=== PATIENT | male | born 1960 | race Caucasian/White ===

== ENCOUNTER → 2016-08-04 | Outpatient (CLI) | payer OTHER ==
[~2016-08-04] MED LIST: ASPI81TA28 PO; FURO20TA PO; GLC/500 PO; INSDGIPEN SC; INSU100I2 SC; INSU3INJ3 SC; LABE1TAB28 PO; LSN40 PO; NVLGIPEN SC; PLV75 PO; PRVC10 PO; SPIR50TA2 PO
[2016-08-04 13:11] LABS: BLOOD UREA NITROGEN 14 mg/dl (7-18); BUN/CREATININE RATIO 12.5 (10-20); CALCIUM 9.4 mg/dl (8.5-10.1); CARBON DIOXIDE 24 mmol/L (21-32); CHLORIDE 99 mmol/L (98-107); GLUCOSE 272 mg/dl (70-99); PHOSPHORUS 2.6 mg/dl (2.5-4.9); POTASSIUM 3.9 mmol/L (3.5-5.1); SODIUM 135 mmol/L (136-145)
== END | disposition home or self-care (01) ==
LOC: C.LABMFLN 08:01
PROVIDERS: ATTEND Internal Medicine Nephrology
DX: E26.09 Other primary hyperaldosteronism (principal); E87.6 Hypokalemia

== ENCOUNTER 2016-08-31 14:22 | Inpatient (IN) | payer OTHER ==
[~2016-08-31] VITALS: Ht 152.4 cm; Wt 112.0 kg
[~2016-08-31 14:22] MED LIST changes: -INSDGIPEN SC; -INSU100I2 SC; -INSU3INJ3 SC; -NVLGIPEN SC; -PLV75 PO; -PRVC10 PO
[2016-08-31] MEDS ORDERED: SODIUM CHLORIDE 0.9% 1000ML 1,000 ML IV SCH (14:45)
--- NOTE | 2016-08-31 14:51 | EMERGENCY ROOM VISIT NOTE ---
History Report prepared by Flip: Umberto Shepard Under the Supervision of: Dr. Ryan Herrera M.D. First contact with patient: 14:37 Chief Complaint: EYE ASSESSMENT Stated Complaint: BLURRY VISION R EYE History of Present Illness The patient is a 56 year old male who presents to the Emergency Room with complaints of a constant "star" in the right side of his visual field that her first noticed on Thursday afternoon, two days prior to arrival. The patient states that he was sitting at home watching the news when he noticed the "star- like" obstruction in his visual field. The brightness of the star has improved but it is still making it very difficult to read. He also began to experience a gradual onset headache when his symptoms started. This headache has resolved spontaneously today. The patient is a diabetic, which he tries to control with his diet. He also has a history of hypertension and takes Baby Aspirin daily. Source of History: patient Onset: Two days [employer] Position: eye (right) Quality: other ("star" obstructing vision) Timing: constant Associated Symptoms: + headache Review of Systems See HPI for pertinent positives & negatives. A total of 10 systems reviewed and were otherwise negative. Past Medical & Surgical Medical Problems: (1) CVA (cerebral vascular accident) (2) Diabetes (3) Hypertension (4) Visual changes Family History Diabetes mellitus FH: heart disease FHx: gallbladder disease Hypertension Social History Smoking Status: Never Smoker Alcohol Use: occasionally Marital Status: Housing Status: lives with family Occupation Status: employed Current/Historical Medications Scheduled Aspirin (Aspirin Ec), 81 MG PO DAILY Furosemide (Lasix), 20 MG PO DAILY Labetalol (Normodyne), 200 MG PO BID Lisinopril (Lisinopril), 40 MG PO DAILY Metformin Hcl (Glucophage), 500 MG PO QID Spironolactone (Aldactone), 50 MG PO DAILY Allergies Coded Allergies: No Known Allergies (Unverified , 08/31/16) Physical Exam Vital Signs Date Time Temp Pulse Resp B/P Pulse Ox O2 Delivery O2 Flow Rate FiO2 08/31/16 17:45 96 Room Air 08/31/16 17:39 77 16 148/89 96 Room Air 08/31/16 15:52 79 17 96 08/31/16 15:39 79 16 153/89 96 Room Air 08/31/16 15:38 81 08/31/16 15:36 153/89 08/31/16 14:50 96 Room Air 08/31/16 14:25 36.9 85 16 154/107 96 Room Air Physical Exam GENERAL: Patient is a healthy-appearing well-nourished male HEAD: Normocephalic atraumatic EYES: Ocular movements intact pupils equal and react to light OROPHARYNX mucous membranes are moist no exudates present no erythema or edema present NECK: Supple no nuchal rigidity CHEST: Good equal expansion LUNGS: Clear and equal to auscultation CARDIAC: Normal S1 and S2 ABDOMEN: Soft nontender no guarding BACK: No CVA tenderness EXTREMITIES: No pain upon palpation normal muscle strength in all groups no clubbing cyanosis or edema NEURO: Patient is following commands is answering questions appropriately. Alert and oriented x3 Cranial Nerves 2-12 grossly intact Medical Decision & Procedures ER Provider Diagnostic Interpretation: Radiology results as stated below per my review and radiologist interpretation: CT SCAN OF THE BRAIN WITHOUT IV CONTRAST CLINICAL HISTORY: Right-sided visual changes. COMPARISON STUDY: No priors. TECHNIQUE: Unenhanced axial CT scan of the brain is performed from the vertex to the skull base. Automated dose control exposure was utilized. CT DOSE: 537.48 mGy.cm FINDINGS: Brain parenchyma: There is loss of higuera-white matter differentiation the left occipital lobe, best seen on image #12. There is no hemorrhage or mass effect. There is minimal periventricular microangiopathic disease. No extra-axial fluid collection is seen. Ventricles, sulci, cisterns: Normal in configuration. Intracranial vasculature: There is mild atherosclerotic calcification of the cavernous carotid and vertebral arteries. Calvarium: Unremarkable. Sinuses and mastoids: The visualized paranasal sinuses are clear. The mastoid air cells are well pneumatized. Orbits: The bony orbits are grossly intact. IMPRESSION: 1. Findings are consistent with a small acute to subacute left occipital infarct. 2. No additional foci of ischemia are suggested by CT. There is no hemorrhage or mass effect. Electronically signed by: Doug Limon M.D. 08/31/2016 3:28 PM Dictated Date/Time: 08/31/2016 3:24 PM SINGLE VIEW CHEST CLINICAL HISTORY: Strokelike symptoms. FINDINGS: An AP, portable, upright chest radiograph is compared to study dated 08/29/2013. The examination is mildly degraded by portable technique and patient rotation. The heart is top normal for projection. The mediastinal contour is within normal limits. The lungs and pleural spaces are clear. No pneumothorax is seen. The bony thorax is grossly intact. IMPRESSION: No active disease in the chest. Electronically signed by: Doug Limon M.D. 08/31/2016 3:57 PM Dictated Date/Time: 08/31/2016 3:56 PM ULTRASOUND OF THE CAROTID ARTERIES: CLINICAL HISTORY: Left occipital stroke. COMPARISON STUDY: No priors. TECHNIQUE: Real-time, grayscale, and color Doppler sonography of the carotid arteries is performed. Images are reviewed in the transverse and longitudinal planes. FINDINGS: Blood pressure in the right arm measures 193/108 and blood pressure in the left arm measures 142/86. The carotid arteries are patent bilaterally and demonstrate antegrade flow. There is mild atheroscierotic plaque seen in the carotid bulbs bilaterally. Normal doppler arterial waveforms are seen throughout. Velocity measurements are listed below. Common carotid peak systolic velocity (cm/sec): RIGHT: 87 LEFT: 98 ICA proximal peal systolic velocity (cm/sec): RIGHT: 49 LEFT: 46 ICA mid peak systolic velocity (cm/sec): RIGHT: 55 LEFT: %) ICA distal peak systolic velocity (cm/sec): RIGHT: 56 LEFT: 55 ICA/CC peak systolic ratio: RIGHT 0.6 LEFT: 0.6 Antegrade flow was shown in the vertebral arteries. The external carotid arteries are patent. The subclavian arteries are patent with normal direction of flow. IMPRESSION: 1. There is no sonographic evidence of hemodynamically significant stenosis in the right or left carotid arterial system. 2. Antegrade flow is shown in the vertebral arteries. Electronically signed by: Doug Limon M.D. 08/31/2016 4:45 Laboratory Results 08/31/16 15:00 Red Blood Count 4.86, Mean Corpuscular Volume 85.2, Mean Corpuscular Hemoglobin 32.3, Mean Corpuscular Hemoglobin Concent 37.9, Mean Platelet Volume 10.0, Neutrophils (%) (Auto) 52.2, Lymphocytes (%) (Auto) 37.2, Monocytes (%) (Auto) 8.0, Eosinophils (%) (Auto) 1.9, Basophils (%) (Auto) 0.6, Neutrophils # (Auto) 3.52, Lymphocytes # (Auto) 2.51, Monocytes # (Auto) 0.54, Eosinophils # (Auto) 0.13, Basophils # (Auto) 0.04 08/31/16 15:00 Test 08/31/16 15:00 08/31/16 15:05 08/31/16 15:11 White Blood Count 6.75 K/uL (4.8-10.8) Red Blood Count 4.86 M/uL (4.7-6.1) Hemoglobin 15.7 g/dL (14.0-18.0) Hematocrit 41.4 % (42-52) Mean Corpuscular Volume 85.2 fL (80-100) Mean Corpuscular Hemoglobin 32.3 pg (25-34) Mean Corpuscular Hemoglobin Concent 37.9 g/dl (32-36) Platelet Count 216 K/uL (130-400) Mean Platelet Volume 10.0 fL (7.4-10.4) Neutrophils (%) (Auto) 52.2 % Lymphocytes (%) (Auto) 37.2 % Monocytes (%) (Auto) 8.0 % Eosinophils (%) (Auto) 1.9 % Basophils (%) (Auto) 0.6 % Neutrophils # (Auto) 3.52 K/uL (1.4-6.5) Lymphocytes # (Auto) 2.51 K/uL (1.2-3.4) Monocytes # (Auto) 0.54 K/uL (0.11-0.59) Eosinophils # (Auto) 0.13 K/uL (0-0.5) Basophils # (Auto) 0.04 K/uL (0-0.2) RDW Standard Deviation 36.8 fL (36.4-46.3) RDW Coefficient of Variation 11.9 % (11.5-14.5) Immature Granulocyte % (Auto) 0.1 % Immature Granulocyte # (Auto) 0.01 K/uL (0.00-0.02) Prothrombin Time 10.3 SECONDS (9.0-12.0) Prothromb Time International Ratio 1.0 (0.9-1.1) Activated Partial Thromboplast Time 25.0 SECONDS (21.0-31.0) Partial Thromboplastin Ratio 1.0 Anion Gap 10.0 mmol/L (3-11) Est Creatinine Clear Calc Drug Dose 74.1 ml/min Estimated GFR () 59.9 Estimated GFR (Non- 51.7 BUN/Creatinine Ratio 18.3 (10-20) Calcium Level 9.2 mg/dl (8.5-10.1) Total Creatine Kinase 112 U/L (39-308) Creatine Kinase MB 1.0 ng/ml (0.5-3.6) Creatine Kinase MB Ratio 0.9 (0-3.0) Troponin I < 0.015 ng/ml (0-0.045) Beta-Hydroxybutyric Acid 1.03 mg/dL (0.2-2.81) Urine Opiates Screen NEG (NEG) Urine Methadone, Qualitative NEG (NEG) Urine Barbiturates NEG (NEG) Urine Phencyclidine (PCP) Level NEG (NEG) Ur Amphetamine/Methamphetamine NEG (NEG) MDMA (Ecstasy) Screen NEG (NEG) Urine Benzodiazepines Screen NEG (NEG) Urine Cocaine Metabolite NEG (NEG) Urine Marijuana (THC) NEG (NEG) Bedside Glucose 420 mg/dl (70-99) Bedside Prothrombin Time INR 0.9 (0.9-1.1) Labs reviewed by ED physician. Medications Administered Medications (Trade) Dose Ordered Sig/Helga Route Start Time Stop Time Status Last Admin Dose Admin Sodium Chloride 1,000 ml @ 50 mls/hr Q20H IV 08/31/16 14:45 09/30/16 14:44 08/31/16 15:30 50 MLS/HR Sodium Chloride (Nss 1000ml) 1,000 ml @ 999 mls/hr Q1H1M STAT IV 08/31/16 15:17 08/31/16 16:17 DC 08/31/16 15:31 999 MLS/HR Insulin Human Regular (novoLIN-R U-100 PER UNIT) 10 units NOW STAT IV 08/31/16 15:17 08/31/16 15:19 DC 08/31/16 15:28 10 UNITS Aspirin (Aspirin Chew) 324 mg NOW STAT PO 08/31/16 15:45 08/31/16 15:47 DC 08/31/16 15:59 324 MG ECG Indication: other (Vision irregularities) Rate (beats per minute): 81 Rhythm: normal sinus Findings: other (Old inferior infarct) ED Course 1438: Past medical records reviewed. The patient was evaluated in room B12. A complete history and physical examination was performed. 1445: Ordered Sodium Chloride 1000 mL @ 50 mL/hr IV. 1517: Ordered Regular Human Insulin 10 units IV, Sodium Chloride 1000 mL @ 999 mL/hr IV. 1541: I checked on the patient at this time. I discussed the results of the CT scan. He understands the severity of his untreated Diabetes. 1545: Ordered Aspirin 324 mg PO. 1547: I discussed the case with Dr. Guanaco [facility]ATH[facility], he will evaluate the patient for further treatment. Medical Decision Differential diagnosis: Etiologies such as metabolic, infection, hypo/hyperglycemia, electrolyte abnormalities, cardiac sources, intracerebral event, toxicologic, neurologic, as well as others were entertained. This is a 56-year-old male who presents emergency department complaining of a starlike object in his right field of vision that developed acutely Thursday night with a large amount of floaters. On fundus exam his retina appears to be attached. Based on the patient's history of hypertension as well as poor diabetes control, he was sent for a CAT scan of the head. This was concerning for an occipital stroke. As his symptoms have been ongoing since Thursday night I do not believe he is a candidate for intervention. He was given 324 mg of aspirin here in emergency department along with a bolus of fluid. I will note that the patient's glucose is elevated for 20. He was also given 10 units of insulin here in the emergency department. I did discuss the case with Dr. Benjamin who agreed to admit the patient. Patient family were in agreement with the treatment plan. Consults Time Called: 1541 Consulting Physician: Dr. Guanaco [facility] Returned Call: [phone] I discussed the case with Dr. Guanaco [facility], he will evaluate the patient for further treatment. Impression Primary Impression: CVA (cerebral vascular accident) Critical Care I have personally spent greater than 30 minutes of critical care time in the direct management of this patient. This includes bedside care, interpretation of diagnostic studies, and testing, discussion with consultants, patient, and family members, and other required patient management activities. This 30 minutes is in excess of all separately billable procedures. Scribe Attestation The scribe's documentation has been prepared under my direction and personally reviewed by me in its entirety. I confirm that the note above accurately reflects all work, treatment, procedures, and medical decision making performed by me. Departure Information Dispostion Being Evaluated By Hospitalist Referrals Rei Milton D.O.Int.Med. (PCP) Patient Instructions My [facility] Problem Qualifiers Primary Impression: CVA (cerebral vascular accident) CVA mechanism: embolism Precerebral and cerebral artery: unspecified cerebral artery Qualified Codes: I63.40 - Cerebral infarction due to embolism of unspecified cerebral artery
[2016-08-31] MEDS ORDERED: FURO20TA PO (14:53)
[2016-08-31] MEDS ORDERED: NovoLIN-R INSULIN PER UNIT CHARGE IV STA (15:17)
[2016-08-31] MEDS ORDERED: SODIUM CHLORIDE 0.9% 1000ML 1,000 ML IV STA (15:17)
--- NOTE | 2016-08-31 15:30 | DIAGNOSTIC IMAGING REPORT ---
CT SCAN OF THE BRAIN WITHOUT IV CONTRAST CLINICAL HISTORY: Right-sided visual changes. COMPARISON STUDY: No priors. TECHNIQUE: Unenhanced axial CT scan of the brain is performed from the vertex to the skull base. Automated dose control exposure was utilized. CT DOSE: 537.48 mGy.cm FINDINGS: Brain parenchyma: There is loss of higuera-white matter differentiation the left occipital lobe, best seen on image #12. There is no hemorrhage or mass effect. There is minimal periventricular microangiopathic disease. No extra-axial fluid collection is seen. Ventricles, sulci, cisterns: Normal in configuration. Intracranial vasculature: There is mild atherosclerotic calcification of the cavernous carotid and vertebral arteries. Calvarium: Unremarkable. Sinuses and mastoids: The visualized paranasal sinuses are clear. The mastoid air cells are well pneumatized. Orbits: The bony orbits are grossly intact. IMPRESSION: 1. Findings are consistent with a small acute to subacute left occipital infarct. 2. No additional foci of ischemia are suggested by CT. There is no hemorrhage or mass effect. Electronically signed by: Doug Limon M.D. 08/31/2016 3:28 PM Dictated Date/Time: 08/31/2016 3:24 PM
[2016-08-31 15:33] LABS: BASO % 0.6 %; BASO ABS # 0.04 K/uL (0-0.2); COMPLETE YES; EOS % 1.9 %; HEMATOCRIT 41.4 % (42-52); IG% 0.1 %; LYMPH % 37.2 %; LYMPH ABS # 2.51 K/uL (1.2-3.4); MEAN CELL VOLUME 85.2 fL (80-100); MEAN CORPUSCULAR HEMOGLOBIN 32.3 pg (25-34); MEAN CORPUSCULAR HGB CONC 37.9 g/dl (32-36); NEUT % 52.2 %; PLATELET COUNT 216 K/uL (130-400); RED BLOOD COUNT 4.86 M/uL (4.7-6.1); WHITE BLOOD COUNT 6.75 K/uL (4.8-10.8)
[2016-08-31] MEDS ORDERED: ASPIRIN 81 MG CHEW PO STA (15:45)
[2016-08-31 15:46] LABS: PROTHROMBIN TIME (PATIENT) 10.3 SECONDS (9.0-12.0)
[2016-08-31 15:49] LABS: BENZODIAZEPINE, URINE NEG (NEG); COCAINE,URINE NEG (NEG); PHENCYCLIDINE, URINE NEG (NEG)
[2016-08-31 15:56] LABS: BLOOD UREA NITROGEN 27 mg/dl (7-18); BUN/CREATININE RATIO 18.3 (10-20); CALCIUM 9.2 mg/dl (8.5-10.1); CARBON DIOXIDE 26 mmol/L (21-32); CHLORIDE 96 mmol/L (98-107); CKMB/CK RATIO 0.9 (0-3.0); GLUCOSE 426 mg/dl (70-99); POTASSIUM 4.3 mmol/L (3.5-5.1); SODIUM 132 mmol/L (136-145)
--- NOTE | 2016-08-31 15:58 | DIAGNOSTIC IMAGING REPORT ---
SINGLE VIEW CHEST CLINICAL HISTORY: Strokelike symptoms. FINDINGS: An AP, portable, upright chest radiograph is compared to study dated 08/29/2013. The examination is mildly degraded by portable technique and patient rotation. The heart is top normal for projection. The mediastinal contour is within normal limits. The lungs and pleural spaces are clear. No pneumothorax is seen. The bony thorax is grossly intact. IMPRESSION: No active disease in the chest. Electronically signed by: Doug Limon M.D. 08/31/2016 3:57 PM Dictated Date/Time: 08/31/2016 3:56 PM
[2016-08-31 16:10] LABS: BETA-HYDROXYBUTYRATE 1.03 mg/dL (0.2-2.81)
[2016-08-31] MEDS ORDERED: NITROGLYCERIN 0.4 MG SL PER TAB CHARGE SL PRN (16:30)
[2016-08-31] MEDS ORDERED: MoRPHine SULFATE 2 MG/ML CARP IV PRN (16:30)
[2016-08-31] MEDS ORDERED: ALUMINUM/MAGNESIUM/SIMETH (MAALOX MAX) 30 ML UDC PO PRN (16:30)
[2016-08-31] MEDS ORDERED: ONDANSETRON INJ 2 MG/ML 2 ML VIAL IV PRN (16:30)
[2016-08-31] MEDS ORDERED: ACETAMINOPHEN 325 MG TAB PO PRN (16:30)
[2016-08-31] MEDS ORDERED: POLYETHYLENE (MIRALAX) 17 GM PACK PO PRN (16:30)
[2016-08-31] MEDS ORDERED: PHARMACIST DISCHARGE MED REC CONSULT PRN ×2 (16:30→18:15)
[2016-08-31] MEDS ORDERED: MAGNESIUM HYDROXIDE SUSP 30 ML UDC PO PRN (16:30)
[2016-08-31] MEDS ORDERED: INSULIN GLARGINE SOLOSTAR 100 UNITS/ML 3 ML PEN SC ONE (17:32)
[2016-08-31 17:45] VITALS: O2SAT 96; BMI 31.7
--- NOTE | 2016-08-31 18:11 | DIAGNOSTIC IMAGING REPORT ---
ULTRASOUND OF THE CAROTID ARTERIES CLINICAL HISTORY: Left occipital stroke. COMPARISON STUDY: No priors. TECHNIQUE: Real-time, grayscale, and color Doppler sonography of the carotid arteries is performed. Images are reviewed in the transverse and longitudinal planes. FINDINGS: Blood pressure in the right arm measures 193/108 and blood pressure in the left arm measures 142/86. The carotid arteries are patent bilaterally and demonstrate antegrade flow. There is mild atherosclerotic plaque seen in the carotid bulbs bilaterally. Normal doppler arterial waveforms are seen throughout. Velocity measurements are listed below. Common carotid peak systolic velocity (cm/sec): RIGHT: 87 LEFT: 98 ICA proximal peak systolic velocity (cm/sec): RIGHT: 49 LEFT: 46 ICA mid peak systolic velocity (cm/sec): RIGHT: 55 LEFT: 50 ICA distal peak systolic velocity (cm/sec): RIGHT: 56 LEFT: 55 ICA/CC peak systolic ratio: RIGHT: 0.6 LEFT: 0.6 Antegrade flow was shown in the vertebral arteries. The external carotid arteries are patent. The subclavian arteries are patent with normal direction of flow. IMPRESSION: 1. There is no sonographic evidence of hemodynamically significant stenosis in the right or left carotid arterial system. 2. Antegrade flow is shown in the vertebral arteries. Electronically signed by: Doug Limon M.D. 08/31/2016 4:45 PM Dictated Date/Time: 08/31/2016 4:44 PM
--- NOTE | 2016-08-31 18:11 | DIAGNOSTIC IMAGING REPORT ---
MR ANGIOGRAM OF THE BRAIN CLINICAL HISTORY: Left occipital stroke. Visual changes. COMPARISON STUDY: CT and MRI of the brain dated 08/31/2016. TECHNIQUE: 3-D [id number] MR angiography of the intracranial circulation is performed. 3-D tumble views are created and assessed. IV contrast was not administered for this examination. FINDINGS: The [place] is developmentally complete. The internal carotid arteries are widely patent bilaterally, as are the anterior and middle cerebral arteries. The left vertebral artery is dominant. The right vertebral artery is diminutive, with no discrete flow void identified. A flow void was likely shown on the axial T2-weighted sequence of the concurrently performed MRI of the brain. The basilar artery is patent. 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 The posterior cerebral arteries are patent. No aneurysm or focal vessel cut off is identified. IMPRESSION: 1. The left vertebral artery is dominant. The right vertebral artery is diminutive and the flow void was not visualized. A diminutive flow void in the right vertebral artery was likely seen on the axial T2-weighted sequence of the concurrently performed MRI. 2. 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 3. The posterior cerebral arteries are clear, and the anterior circulation is widely patent. Electronically signed by: Doug Limon M.D. 08/31/2016 5:40 PM Dictated Date/Time: 08/31/2016 5:35 PM
--- NOTE | 2016-08-31 18:11 | DIAGNOSTIC IMAGING REPORT ---
MRI OF THE BRAIN WITHOUT IV CONTRAST CLINICAL HISTORY: Visual changes. Left occipital stroke. COMPARISON STUDY: CT of the brain dated 08/31/2016. TECHNIQUE: MRI of the brain was performed utilizing various T1 and T2-weighted sequences in the axial, sagittal, and coronal planes. IV contrast was not administered for this examination. FINDINGS: Brain parenchyma: There is an approximately 2.5 cm focus of restricted diffusion identified in the left occipital lobe consistent with acute to subacute infarct. No additional foci of acute ischemia are suspected. There is no hemorrhage or mass effect. There are scattered foci of subcortical and periventricular microangiopathic change. No extra-axial fluid collection is seen. The cerebellar tonsils are normal in configuration. Ventricles, sulci, and cisterns: Normal in configuration. Pituitary and sella: Unremarkable. Intracranial vasculature: Normal flow voids are maintained at the skull base. Orbits: The bony orbits are grossly intact. Orbital contents are normal in appearance. Sinuses and mastoids: Clear. Calvarium: Unremarkable. Cervical cord: Partially visualized cervical spinal cord is normal in morphology and signal intensity. IMPRESSION: 1. There is a small acute to subacute cortical infarct in the left occipital lobe. 2. No additional foci of acute ischemia are identified. 3. There is no hemorrhage or mass effect. Electronically signed by: Doug Limon M.D. 08/31/2016 5:21 PM Dictated Date/Time: 08/31/2016 5:19 PM
[2016-08-31 18:36] VITALS: BP 165/101; PULSE 77; TEMP 36.9; O2SAT 96
--- NOTE | 2016-08-31 18:39 | History and Physical ---
History & Physical Date & Time of Service: Aug 31, 2016 at 18:38 Chief Complaint: Cva (Cerebral Vascular Accident) Visual Changes Primary Care Physician: Rei Milton D.O.Int.Med. History of Present Illness Source: patient, family, caregiver, parent, spouse This is a 56 yo M with a Hx of poorly controlled Diabetes II ,( last HbA1c 9.4 ) , Essential Hypertension Stage II ( followed by Nephrology) p/w 3 day hx of visual changes. Patient noticed on Thursday (08/29) bright "star like " area in his right lateral peripheral vision. Later in the day , he developed progressive GRESHAM. He initially thought vision disturbance was possibly getting better on Thursday (08/30), but it never went away. As of this morning, the star -like area remained and he also developed progressive visual blurriness. Patient denies focal weakness, numbness, tingling. CT was consistent with small acute to subacute left occipital infarct. MRI, Carotid U/S, Echo pending. On arrival patient also had hyperglycemia over 400. he was started IV fluids and 10 u Novolin. Past Medical/Surgical History Medical Problems: (1) Diabetes Status: Chronic (2) Hypertension Status: Chronic Family History Diabetes mellitus FH: heart disease FHx: gallbladder disease Hypertension Social History Smoking Status: Never Smoker Marital Status: Housing status: lives with family Occupational Status: employed Immunizations History of Influenza Vaccine: No History of Tetanus Vaccine?: Yes History of Pneumococcal: No History of Hepatitis B Vaccine: No Allergies Coded Allergies: No Known Allergies (Unverified , 08/31/16) Home Medications Scheduled Aspirin (Aspirin Ec), 81 MG PO DAILY Clopidogrel Bisulfate (Clopidogrel), 75 MG PO QAM Furosemide (Lasix), 20 MG PO DAILY Insulin Detemir (Levemir Flextouch), 20 UNITS SC DAILY Insulin Lispro (Human) (Humalog Kwikpen), 5 UNITS SC ACHS Labetalol (Normodyne), 200 MG PO BID Lisinopril (Lisinopril), 40 MG PO DAILY Pravastatin Sod (Pravastatin Sodium), 10 MG PO DAILY@17 Spironolactone (Aldactone), 50 MG PO DAILY Review of Systems Constitutional: No chills, No fever, No weakness Eyes: + problem reported, + worsening of vision, No discharge, No eye pain, No redness Respiratory: No cough, No shortness of breath, No sputum Cardiovascular: No chest pain, No edema, No palpitations Abdomen: No constipation, No diarrhea, No nausea, No pain, No vomiting Genitourinary - Male: No dysuria, No hematuria, No urinary urgency Neurologic: No numbness/tingling, No paralysis, No weakness Integumentary: No color change, No itch, No rash Physical Exam Vital Signs Date Time Temp Pulse Resp B/P Pulse Ox O2 Delivery O2 Flow Rate FiO2 08/31/16 18:36 36.9 77 20 165/101 96 Room Air 08/31/16 18:13 75 16 151/91 96 Room Air 08/31/16 18:13 36.9 75 16 151/91 96 08/31/16 17:45 96 Room Air 08/31/16 17:39 77 16 148/89 96 Room Air 08/31/16 15:52 79 17 96 08/31/16 15:39 79 16 153/89 96 Room Air 08/31/16 15:38 81 08/31/16 15:36 153/89 08/31/16 14:50 96 Room Air 08/31/16 14:25 36.9 85 16 154/107 96 Room Air General Appearance: WD/WN, no apparent distress Head: normocephalic, atraumatic Eyes: normal inspection, PERRL, EOMI, sclerae normal Neck: supple, no adenopathy, no carotid bruits, trachea midline Respiratory/Chest: lungs clear, normal breath sounds, no respiratory distress, no accessory muscle use Cardiovascular: regular rate, rhythm, no edema, no murmur, normal peripheral pulses Abdomen/GI: normal bowel sounds, non tender, soft, no organomegaly Extremities/Musculoskelatal: normal inspection, no calf tenderness, normal range of motion Neurologic/Psych: 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, no motor/sensory deficits, alert, normal reflexes, oriented x 3, + depressed affect, + pertinent finding Skin: normal color, warm/dry, no rash Diagnostics Laboratory Results Results Past 24 Hours Test 08/31/16 15:00 08/31/16 15:05 08/31/16 15:11 08/31/16 17:52 Range/Units White Blood Count 6.75 4.8-10.8 K/uL Red Blood Count 4.86 4.7-6.1 M/uL Hemoglobin 15.7 14.0-18.0 g/dL Hematocrit 41.4 42-52 % Mean Corpuscular Volume 85.2 80-100 fL Mean Corpuscular Hemoglobin 32.3 25-34 pg Mean Corpuscular Hemoglobin Concent 37.9 32-36 g/dl Platelet Count 216 130-400 K/uL Mean Platelet Volume 10.0 7.4-10.4 fL Neutrophils (%) (Auto) 52.2 % Lymphocytes (%) (Auto) 37.2 % Monocytes (%) (Auto) 8.0 % Eosinophils (%) (Auto) 1.9 % Basophils (%) (Auto) 0.6 % Neutrophils # (Auto) 3.52 1.4-6.5 K/uL Lymphocytes # (Auto) 2.51 1.2-3.4 K/uL Monocytes # (Auto) 0.54 0.11-0.59 K/uL Eosinophils # (Auto) 0.13 0-0.5 K/uL Basophils # (Auto) 0.04 0-0.2 K/uL RDW Standard Deviation 36.8 36.4-46.3 fL RDW Coefficient of Variation 11.9 11.5-14.5 % Immature Granulocyte % (Auto) 0.1 % Immature Granulocyte # (Auto) 0.01 0.00-0.02 K/uL Prothrombin Time 10.3 9.0-12.0 SECONDS Prothromb Time International Ratio 1.0 0.9-1.1 Activated Partial Thromboplast Time 25.0 21.0-31.0 SECONDS Partial Thromboplastin Ratio 1.0 Sodium Level 132 136-145 mmol/L Potassium Level 4.3 3.5-5.1 mmol/L Chloride Level 96 98-107 mmol/L Carbon Dioxide Level 26 21-32 mmol/L Anion Gap 10.0 3-11 mmol/L Blood Urea Nitrogen 27 7-18 mg/dl Creatinine 1.50 0.60-1.40 mg/dl Est Creatinine Clear Calc Drug Dose 74.1 ml/min Estimated GFR () 59.9 Estimated GFR (Non- 51.7 BUN/Creatinine Ratio 18.3 10-20 Random Glucose 426 70-99 mg/dl Calcium Level 9.2 8.5-10.1 mg/dl Total Creatine Kinase 112 39-308 U/L Creatine Kinase MB 1.0 0.5-3.6 ng/ml Creatine Kinase MB Ratio 0.9 0-3.0 Troponin I < 0.015 0-0.045 ng/ml Beta-Hydroxybutyric Acid 1.03 0.2-2.81 mg/dL Urine Opiates Screen NEG NEG Urine Methadone, Qualitative NEG NEG Urine Barbiturates NEG NEG Urine Phencyclidine (PCP) Level NEG NEG Ur Amphetamine/Methamphetamine NEG NEG MDMA (Ecstasy) Screen NEG NEG Urine Benzodiazepines Screen NEG NEG Urine Cocaine Metabolite NEG NEG Urine Marijuana (THC) NEG NEG Bedside Glucose 420 319 70-99 mg/dl Bedside Prothrombin Time INR 0.9 0.9-1.[address] SCAN OF THE BRAIN WITHOUT IV CONTRAST CLINICAL HISTORY: Right-sided visual changes. COMPARISON STUDY: No priors. TECHNIQUE: Unenhanced axial CT scan of the brain is performed from the vertex to the skull base. Automated dose control exposure was utilized. CT DOSE: 537.48 mGy.cm FINDINGS: Brain parenchyma: There is loss of higuera-white matter differentiation the left occipital lobe, best seen on image #12. There is no hemorrhage or mass effect. There is minimal periventricular microangiopathic disease. No extra-axial fluid collection is seen. Ventricles, sulci, cisterns: Normal in configuration. Intracranial vasculature: There is mild atherosclerotic calcification of the cavernous carotid and vertebral arteries. Calvarium: Unremarkable. Sinuses and mastoids: The visualized paranasal sinuses are clear. The mastoid air cells are well pneumatized. Orbits: The bony orbits are grossly intact. IMPRESSION: 1. Findings are consistent with a small acute to subacute left occipital infarct. 2. No additional foci of ischemia are suggested by CT. There is no hemorrhage or mass effect. Impression Assessment and Plan 56 yo M With Hx of poorly controlled Diabetes II (last A1C 9.4), Essential HTN, Obstructive Sleep Apnea p/w acute visual changes including 3 day hx persistent bright flash of light in right lateral peripheral vision, GRESHAM, and progressive blurry vision that started morning of arrival in addition to Hyperglycemia on arrival above 400. CVA - worsening blurry vision, bright area in Right lateral peripheral vision -CT shows small acute to subacute left occipital infarct. - MRI, MRA, Carotid Doppler - Check Echo - Check Lipid panel, A1C - already on asa. given 325mgs aspirin in the ER. will need to either switch to plavix or add in addition to aspirin. - Consult Neurology - Will need ophtho eval HTN -Systolic in 150's -Continue to monitor -Continue Home BP medication -Chlorthalidone, Furosemide, Labetolol, Lisinopril, Spironolactone Hyperglycemia on arrival BGL of 426, trending down s/p 10 u of Novolin in ED, IV fluids -secondary to medical non-compliance with metformin -hasn't been taking metformin -start in 20 u lantus -Insulin SS Aspart - check A1C - Regular BGL Checks DVT Prophylaxis -lovenox Sleep Apnea: Mild - Patient reports he does not use CPAP at home -Previous Clinic note reports prefers weight reduction as treatment -Continue to monitor Disposition: Admit to Telemetry Full Resuscitation Level of Care Telemetry Advanced Directives Existing Living Will: Yes Existing Power of Family Consumer Scientist: Yes (BOLA ) Resuscitation Status FULL RESUSCITATION VTE Prophylaxis VTE Risk Assessment Done? Y/N: Yes Risk Level: Moderate Given or contraindicated: Enoxaparin (Lovenox)SQ Social Service Consult None Apply Resident Tracking Resident Involvement: Resident Care Provided Care Provided: Adult [facility] Medicine Reviewed: Pt Seen/Exam by Me History 56 y/o M presents with start like sensation at the corner of right eye since > 24 hrs and having headache started yesterday. In the ED noted to have acute- subacute stroke on CT scan in occipital region. 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 I have discussed the case with Dr. Velazquez The above note reflects my findings, conclusions, and recommendations.
[2016-08-31 19:20] VITALS: BP 135/81
[2016-08-31] MEDS: NITROGLYCERIN OINT 2% 1GM PACKET EXT SCH (19:22)
[2016-08-31 20:00] VITALS: O2SAT 96
--- NOTE | 2016-08-31 20:50 | Progress Note ---
Progress Note Date of Service Aug 31, 2016. Progress Note Resident drafter construction coverage note Asked to see patient to discuss MRI and carotid artery ultrasound results. Went to see patient within 10 minutes. Discussed MRI findings of a subacute occipital infarct with patient and his . Discussed this is likely due to his diabetes. He reports his vision changes are still persistent, but they have not gotten any worse. was asking if neuro would be consulted. I discussed I will bring this up to the primary team but am not at liberty to place this myself. His also and also made him an appointment with Dr.Nini Carver of [facility] endocrinology. His is actually chief learning officer there. All of the family's questions were answered. Told the family that I am drafter construction all night, and to call if there were any other questions. Resident Tracking Resident Involvement: Drill Runner Coverage Note Care Provided: Adult Hospital Medicine
[2016-08-31] MEDS ORDERED: ENOXAPARIN 40 MG/0.4 ML SYR SC SCH (21:00)
[2016-08-31 21:34] VITALS: BP 142/80
[2016-08-31] MEDS: LABETALOL HCL 200 MG TAB PO SCH (21:39)
[2016-08-31] MEDS: INSULIN ASPART 100 UNITS/ML 3 ML PEN SC SCH (21:41)
[2016-08-31 23:54] VITALS: BP 100/64; PULSE 75; TEMP 36.9; O2SAT 95
[2016-09-01] VITALS (12 sets, daily range): BP systolic 97–177; BP diastolic 61–101; PULSE 67–77; TEMP 36.5–36.8; O2SAT 94–99; Ht 152.4 cm; Wt 112.0 kg
[2016-09-01] MEDS: NITROGLYCERIN OINT 2% 1GM PACKET EXT SCH ×3 (00:29→14:16)
[2016-09-01 06:07] LABS: BASO % 0.9 %; BASO ABS # 0.06 K/uL (0-0.2); COMPLETE YES; EOS % 3.5 %; HEMATOCRIT 37.6 % (42-52); IG% 0.2 %; LYMPH % 47.3 %; MEAN CELL VOLUME 85.8 fL (80-100); MEAN CORPUSCULAR HEMOGLOBIN 32.2 pg (25-34); MEAN CORPUSCULAR HGB CONC 37.5 g/dl (32-36); MEAN PLATELET VOLUME 9.9 fL (7.4-10.4); MONO % 8.1 %; PLATELET COUNT 187 K/uL (130-400); RED BLOOD COUNT 4.38 M/uL (4.7-6.1); WHITE BLOOD COUNT 6.56 K/uL (4.8-10.8)
[2016-09-01 06:39] LABS: BUN/CREATININE RATIO 19.3 (10-20); CALCIUM 8.7 mg/dl (8.5-10.1); CREATININE 1.2 mg/dl (0.60-1.40); POTASSIUM 3.7 mmol/L (3.5-5.1)
[2016-09-01 06:42] LABS: CHOLESTEROL/HDL RATIO 6.4
[2016-09-01 07:04] LABS: ESTIMATED AVERAGE GLUCOSE 263 mg/dl; HA1C FLAG Normal (Normal)
[2016-09-01] MEDS: INSULIN ASPART 100 UNITS/ML 3 ML PEN SC SCH ×3 (07:30→16:15)
[2016-09-01] MEDS: LABETALOL HCL 200 MG TAB PO SCH (08:46)
[2016-09-01] MEDS ORDERED: ASPIRIN 81 MG ECTAB PO SCH ×2 (09:00)
[2016-09-01] MEDS ORDERED: LISINOPRIL 40 MG TAB PO SCH (09:00)
[2016-09-01] MEDS ORDERED: SPIRONOLACTONE 25 MG TAB PO SCH (09:00)
[2016-09-01] MEDS ORDERED: FUROSEMIDE 20 MG TAB PO SCH (09:00)
[2016-09-01] MEDS ORDERED: INSULIN GLARGINE SOLOSTAR 100 UNITS/ML 3 ML PEN SC SCH (09:00)
--- NOTE | 2016-09-01 09:07 | ECHOCARDIOGRAM REPORT ---
*NOTICE TO RECEIVING [employer]Y This information is strictly Confidential and protected under [place] law. [place] law prohibits you from making any further disclosure of this information unless further disclosure is expressly permitted by the written consent of the person to whom it pertains or is authorized by law. A general authorization for the release of medical or other information is not sufficient for this purpose. Hospital accepts no responsibility if the information is made available to any other person, INCLUDING THE PATIENT. Interpretation Summary * Name: KIARA MCCARTY Study Date: 09/01/2016 07:19 AM BP: 97/61 mmHg * Patient Location: S233 HR: 67 * : 1960 (M/d/yyyy) Gender: Male Height: 74 in * Age: 56 yrs Ethnicity: CA Weight: 246 lb * Ordering Physician: Jesus Velazquez * Referring Physician: Self, Referred * Performed By: Pearl Gonzalez RCS * * Reason For Study: Cerebral Ischemic/Embolus * BSA: 2.4 m2 * -- Conclusions -- * 1. Normal left ventricular size and systolic function. EF 60-65%. No regional wall motion abnormalities. Mild concentric left ventricular hypertrophy. Type 1 diastolic dysfunction. * 2. No significant valvular abnormalities visualized. * 3. Normal estimated right ventricular systolic pressure; RVSP 19 mmHg. * 4. Injection of agitated saline demonstrates right to left shunt at the atrial level. No obvious ASD visualized; suggestive of PFO. * 5. No prior study available for comparison. Procedure Details * A complete two-dimensional transthoracic echocardiogram was performed (2D, M-mode, Doppler and color flow Doppler). * A saline contrast injection was performed to assess for cardiac shunting. * The injection was performed through an intravenous line in the right arm. * The attending nurse who injected the saline contrast was Yesenia Hyde RN. * A total of 10 cc of agitated saline was given. Left Ventricle * Normal left ventricular size and systolic function. EF 60-65%. No regional wall motion abnormalities. Mild concentric left ventricular hypertrophy. Type 1 diastolic dysfunction. Right Ventricle * The right ventricle is normal in size and function. * The right ventricular systolic function is normal as assessed by tricuspid annular plane systolic excursion (TAPSE) (normal >1.5 cm). Atria * The left atrial size is normal. * Right atrial size is normal. * Injection of agitated saline demonstrates right to left shunt at the atrial level. No obvious ASD visualized; suggest PFO. Mitral Valve * The mitral valve is normal in structure and function. * There is no mitral valve stenosis. * There is trace mitral regurgitation. Tricuspid Valve * The tricuspid valve is not well visualized, but is grossly normal. * There is no tricuspid stenosis. * There is trace tricuspid regurgitation. Aortic Valve * The aortic valve is normal in structure and function. * The aortic valve is trileaflet. * No hemodynamically significant valvular aortic stenosis. * No aortic regurgitation is present. Pulmonic Valve * The pulmonary valve is inadequately visualized, but the Doppler data is adequate for interpretation. * There is no pulmonic valvular stenosis. * There is no significant pulmonary regurgitation. Great Vessels * The aortic root is normal size. * Mildly dilated descending aorta. Pericardium/Pleural * There is no pericardial effusion. Great Vessels * Normal inferior vena cava size and collapsability with sniff indicates a normal right atrial pressure of 3 mmHg MMode 2D Measurements and Calculations IVSd 1.3 cm IVSs 1.3 cm LVIDd 4.2 cm LVIDs 2.3 cm LVPWd 1.3 cm LVPWs 1.3 cm IVS/LVPW 0.97 FS 46.2 % EDV(Teich) 79.1 ml ESV(Teich) 17.4 ml EF(Teich) 77.9 % EDV(cubed) 74.7 ml ESV(cubed) 11.6 ml EF(cubed) 84.4 % % IVS thick -0.58 % % LVPW thick 1.4 % LV mass(C)d 203.3 grams LV mass(C)dI 85.7 grams/m\S\2 LV mass(C)s 88.4 grams LV mass(C)sI 37.2 grams/m\S\2 CO(Teich) 4.6 l/min CI(Teich) 1.9 l/min/m\S\2 SV(Teich) 61.7 ml SI(Teich) 26.0 ml/m\S\2 CO(cubed) 4.7 l/min CI(cubed) 2.0 l/min/m\S\2 SV(cubed) 63.1 ml SI(cubed) 26.6 ml/m\S\2 Ao root diam 4.0 cm Ao root area 12.3 cm\S\2 ACS 2.0 cm LA dimension 3.1 cm asc Aorta Diam 4.0 cm LA/Ao 0.79 LVAd ap4 33.7 cm\S\2 LVLd ap4 9.5 cm EDV(MOD-sp4) 99.0 ml LVAs ap4 17.7 cm\S\2 LVLs ap4 7.5 cm ESV(MOD-sp4) 34.0 ml EF(MOD-sp4) 65.7 % LVAd ap2 34.5 cm\S\2 LVLd ap2 9.1 cm EDV(MOD-sp2) 110.0 ml EDV(sp2-el) 132.4 ml LVAs ap2 16.7 cm\S\2 LVLs ap2 7.1 cm ESV(MOD-sp2) 35.0 ml ESV(sp2-el) 49.6 ml EF(MOD-sp2) 68.2 % EF(sp2-el) 62.6 % CO(MOD-sp4) 4.8 l/min CI(MOD-sp4) 2.0 l/min/m\S\2 SV(MOD-sp4) 65.0 ml SI(MOD-sp4) 27.4 ml/m\S\2 CO(MOD-sp2) 5.6 l/min CI(MOD-sp2) 2.3 l/min/m\S\2 SV(MOD-sp2) 75.0 ml SI(MOD-sp2) 31.6 ml/m\S\2 CO(sp2-el) 6.1 l/min CI(sp2-el) 2.6 l/min/m\S\2 SV(sp2-el) 82.8 ml SI(sp2-el) 34.9 ml/m\S\2 Doppler Measurements and Calculations MV E max esther 50.1 cm/sec MV A max esther 89.5 cm/sec MV E/A 0.56 MV P1/2t max esther 63.9 cm/sec MV P1/2t 90.7 msec MVA(P1/2t) 2.4 cm\S\2 MV dec slope 206.1 cm/sec\S\2 MV dec time 0.25 sec Ao V2 max 89.2 cm/sec Ao max PG 3.2 mmHg Ao max PG (full) 1.2 mmHg LV V1 max PG 2.0 mmHg LV V1 max 70.6 cm/sec PA V2 max 86.7 cm/sec PA max PG 3.1 mmHg PI max esther 161.6 cm/sec PI max PG 10.4 mmHg PI dec slope 239.8 cm/sec\S\2 PI P1/2t 197.4 msec TR max esther 199.9 cm/sec RVSP(TR) 19.0 mmHg RAP systole 3.0 mmHg
[2016-09-01] MEDS ORDERED: OPTIRAY 320 IV PRN (09:15)
--- NOTE | 2016-09-01 09:37 | Neurology Consultation ---
Neurology Consultation Date of Consultation: Sep 01, 2016. Attending Physician: Cynthia Guevara DO Primary Care Physician: Rei Milton D.O.Int.Med. Reason for Consultation: Consultation for stroke History of Present Illness Source: patient, hospital records This is a 56-year-old right handed male who presents for evaluation after visual changes. Patient reports that Thursday evening he started to have visual changes in his right visual mckeon. Reports that it looks like a story light. Had an unusual headache refractory to ibuprofen at that time. Reports that symptoms seemed to improve a little bit on Thursday but were still present on Thursday so his made him go to the emergency room for evaluation. Patient was found to have left occipital subacute ischemic stroke. Patient denies any other symptoms. Denies any changes with his thinking or memory. Denies any loss of vision. Denies any trouble with speech or swallowing. Denies any focal weakness or numbness. Denies any recent illnesses. Denies any shortness of breath, chest pain, or heart palpitations. Patient has never had any strokelike symptoms in the past. Patient reports he was taking an aspirin daily at the time of this event. MRI of the brain reported images reviewed by myself. The patient does have a significant left subacute occipital stroke. MRA of the head reports a critical basilar artery stenosis (uncertain if could be overcall by MRI artifact) Ultrasound of carotids are unremarkable Labs were reviewed. Hemoglobin A1c 10.8. Total cholesterol 172, LDL 66, HDL 27, triglycerides 396. Creatinine 1.2 Past Medical/Surgical History Diabetes and hypertension (both reportedly not under good control) Family History Family history for father who had CAD and OH in his 40s Patient denies any family history otherwise of strokes or clotting disorders Social History Patient works as a managing broker. He is normally independent in his activities of daily living. with 3 sons. No tobacco use. No alcohol use. Denies any drug use Patient also reports that he will not take any form of blood products. Smoking Status: Never smoker Marital Status: Housing Status: lives with family Occupation Status: employed Allergies Coded Allergies: No Known Allergies (Unverified , 08/31/16) Current Inpatient Medications Current Inpatient Medications Medications (Trade) Dose Ordered Sig/Helga Route Start Time Stop Time Status Last Admin Dose Admin Miscellaneous Information (Pharmacist Discharge Med Rec Consult) 1 ea UD PRN N/A 08/31/16 16:30 09/30/16 16:29 Acetaminophen (Tylenol Tab) 650 mg Q4H PRN PO 08/31/16 16:30 09/30/16 16:29 Al Hydrox/Mg Hydrox/Simethicone (Maalox Max Susp) 15 ml Q4H PRN PO 08/31/16 16:30 09/30/16 16:29 Magnesium Hydroxide (Milk Of Magnesia Susp) 30 ml Q12H PRN PO 08/31/16 16:30 09/30/16 16:29 Ondansetron HCl (Zofran Inj) 4 mg Q6H PRN IV 08/31/16 16:30 09/30/16 16:29 Nitroglycerin (Nitrostat Tab) 0.4 mg UD PRN SL 08/31/16 16:30 09/30/16 16:29 Nitroglycerin (Nitroglycerin 2% Oint) 1 inch Q6H EXT 08/31/16 18:30 09/30/16 18:29 09/01/16 06:20 1 INCH Morphine Sulfate (MoRPHine SULFATE INJ) 2 mg Q30M PRN IV 08/31/16 16:30 09/14/16 16:29 Polyethylene (Miralax Powder Packet) 17 gm DAILY PRN PO 08/31/16 16:30 09/30/16 16:29 Aspirin (Ecotrin Tab) 81 mg DAILY PO 09/01/16 09:00 10/01/16 08:59 09/01/16 08:45 81 MG Furosemide (Lasix Tab) 20 mg DAILY PO 09/01/16 09:00 10/01/16 08:59 09/01/16 08:47 20 MG Labetalol HCl (Normodyne Tab) 200 mg BID PO 08/31/16 21:00 09/30/16 20:59 09/01/16 08:46 200 MG Lisinopril (Zestril Tab) 40 mg DAILY PO 09/01/16 09:00 10/01/16 08:59 09/01/16 08:45 40 MG Spironolactone (Aldactone Tab) 50 mg DAILY PO 09/01/16 09:00 10/01/16 08:59 09/01/16 08:46 50 MG Insulin Glargine (Lantus Solostar Pen) 15 unit DAILY SC 09/01/16 09:00 10/01/16 08:59 Insulin Aspart (novoLOG ASPART) SLIDING SCALE G... ACHS SC 08/31/16 21:00 09/30/16 20:59 08/31/16 21:41 6 UNITS Enoxaparin Sodium (Lovenox Inj) 40 mg Q24H SC 08/31/16 21:00 09/30/16 20:59 08/31/16 21:39 40 MG Clopidogrel Bisulfate (plAVix TAB) 75 mg QAM PO 09/01/16 09:00 10/01/16 08:59 Review of Systems Complete review of systems otherwise negative except for the above noted in history of present illness Physical Exam Vital Signs (Past 24 Hrs): Date Time Temp Pulse Resp B/P Pulse Ox O2 Delivery O2 Flow Rate FiO2 09/01/16 08:00 99 Room Air 09/01/16 07:47 36.6 74 16 158/94 94 Room Air 09/01/16 06:19 75 134/84 09/01/16 04:00 98 Room Air 09/01/16 03:46 36.7 67 18 97/61 98 Room Air 09/01/16 00:00 95 Room Air 08/31/16 23:54 36.9 75 18 100/64 95 Room Air 08/31/16 21:34 142/80 08/31/16 20:00 96 Room Air 08/31/16 19:20 135/81 08/31/16 18:36 36.9 77 20 165/101 96 Room Air 08/31/16 18:13 75 16 151/91 96 Room Air 08/31/16 18:13 36.9 75 16 151/91 96 08/31/16 17:45 96 Room Air 08/31/16 17:39 77 16 148/89 96 Room Air 08/31/16 15:52 79 17 96 08/31/16 15:39 79 16 153/89 96 Room Air 08/31/16 15:38 81 08/31/16 15:36 153/89 08/31/16 14:50 96 Room Air 08/31/16 14:25 36.9 85 16 154/107 96 Room Air Gen.: Patient is alert and sitting in bed, in no acute distress. Mood appears somber HEENT: Normocephalic /atraumatic, no scleral icterus Heart: Regular rate and rhythm Extremities: No gross deformities or rashes noted Neurological examination: Mental status: Patient is alert and oriented x3. Attention and concentration normal for the situation. Good fund of knowledge. Able to give her own history. Speech is fluent without any dysarthria or aphasia noted Cranial nerve: Visual mckeon grossly intact to counting. Funduscopic examination was unremarkable. No papilledema. Pupils equally round and reactive to light. Extraocular muscles intact without nystagmus. No facial asymmetry noted. Facial sensation intact. Tongue is midline. Good palatal elevation. Good shoulder shrug bilaterally. Hearing grossly intact to voice. Strength: 5/5 both proximal and distally in all extremities. There is no arm drift. Tone is normal. Sensation: Grossly intact to light touch in all extremities. Deep tendon reflexes: +1 in bilateral biceps, brachioradialis and patellar. Coordination: Patient had good finger to nose without dysmetria Station within the bed was normal Laboratory Results Past 24 Hours: 09/01/16 05:25 Red Blood Count 4.38, Mean Corpuscular Volume 85.8, Mean Corpuscular Hemoglobin 32.2, Mean Corpuscular Hemoglobin Concent 37.5, Mean Platelet Volume 9.9, Neutrophils (%) (Auto) 40.0, Lymphocytes (%) (Auto) 47.3, Monocytes (%) (Auto) 8.1, Eosinophils (%) (Auto) 3.5, Basophils (%) (Auto) 0.9, Neutrophils # (Auto) 2.63, Lymphocytes # (Auto) 3.10, Monocytes # (Auto) 0.53, Eosinophils # (Auto) 0.23, Basophils # (Auto) 0.06 09/01/16 05:25 Test 08/31/16 15:00 08/31/16 15:11 09/01/16 05:25 09/01/16 07:11 Prothrombin Time 10.3 SECONDS (9.0-12.0) Prothromb Time International Ratio 1.0 (0.9-1.1) Activated Partial Thromboplast Time 25.0 SECONDS (21.0-31.0) Partial Thromboplastin Ratio 1.0 Estimated Average Glucose 263 mg/dl Hemoglobin A1c 10.8 % (4.5-5.6) Total Creatine Kinase 112 U/L (39-308) Creatine Kinase MB 1.0 ng/ml (0.5-3.6) Creatine Kinase MB Ratio 0.9 (0-3.0) Troponin I < 0.015 ng/ml (0-0.045) Beta-Hydroxybutyric Acid 1.03 mg/dL (0.2-2.81) Urine Opiates Screen NEG (NEG) Urine Methadone, Qualitative NEG (NEG) Urine Barbiturates NEG (NEG) Urine Phencyclidine (PCP) Level NEG (NEG) Ur Amphetamine/Methamphetamine NEG (NEG) MDMA (Ecstasy) Screen NEG (NEG) Urine Benzodiazepines Screen NEG (NEG) Urine Cocaine Metabolite NEG (NEG) Urine Marijuana (THC) NEG (NEG) Bedside Prothrombin Time INR 0.9 (0.9-1.1) White Blood Count 6.56 K/uL (4.8-10.8) Red Blood Count 4.38 M/uL (4.7-6.1) Hemoglobin 14.1 g/dL (14.0-18.0) Hematocrit 37.6 % (42-52) Mean Corpuscular Volume 85.8 fL (80-100) Mean Corpuscular Hemoglobin 32.2 pg (25-34) Mean Corpuscular Hemoglobin Concent 37.5 g/dl (32-36) Platelet Count 187 K/uL (130-400) Mean Platelet Volume 9.9 fL (7.4-10.4) Neutrophils (%) (Auto) 40.0 % Lymphocytes (%) (Auto) 47.3 % Monocytes (%) (Auto) 8.1 % Eosinophils (%) (Auto) 3.5 % Basophils (%) (Auto) 0.9 % Neutrophils # (Auto) 2.63 K/uL (1.4-6.5) Lymphocytes # (Auto) 3.10 K/uL (1.2-3.4) Monocytes # (Auto) 0.53 K/uL (0.11-0.59) Eosinophils # (Auto) 0.23 K/uL (0-0.5) Basophils # (Auto) 0.06 K/uL (0-0.2) RDW Standard Deviation 37.6 fL (36.4-46.3) RDW Coefficient of Variation 12.0 % (11.5-14.5) Immature Granulocyte % (Auto) 0.2 % Immature Granulocyte # (Auto) 0.01 K/uL (0.00-0.02) Anion Gap 7.0 mmol/L (3-11) Est Creatinine Clear Calc Drug Dose 92.6 ml/min Estimated GFR () 78.4 Estimated GFR (Non- 67.7 BUN/Creatinine Ratio 19.3 (10-20) Calcium Level 8.7 mg/dl (8.5-10.1) Triglycerides Level 396 mg/dl (0-150) Cholesterol Level 172 mg/dl (0-200) HDL Cholesterol 27 mg/dl LDL Cholesterol, Calculated 66 mg/dl VLDL Cholesterol, Calculated 79 mg/dl Cholesterol/HDL Ratio 6.4 Bedside Glucose 274 mg/dl (70-99) Test 09/01/16 09:09 Imaging As noted above in history of present illness Impression This is a 56-year-old male with subacute left occipital ischemic stroke. Etiology at this time under investigation. Possibly large vessel disease if critical basal artery stenosis is true. Known stroke risk factors include hypertension and diabetes that is not been well controlled in the past. Residual neurological deficits of right visual field distortion In terms of prognosis for recovery of vision, uncertain at this time. The patient does not have discernible vision loss and has more visual distortion, potential for improvement in the future, and we will see over the next 3 months have the progresses. Likely will have some deficits in the end. Plan CTA of the head and neck for further evaluation of stroke etiology and to confirm whether the patient has a critical basal artery stenosis. Recommend to push hydration for the next couple of days in the setting of a creatinine of 1.2 and CTA contrast. May need vascular surgery (or neurosurg) eval if truly critical stenosis. Echocardiogram results are pending. Aspirin 81 mg daily plus Plavix for secondary stroke prevention. I have already taken the liberty of ordering Plavix this morning. Long discussion with the patient about the benefits of Plavix for secondary stroke prevention. Patient has concerns about bleeding risk on Plavix since he does not take blood products. Discussed that depending on vascular results or if he has any intolerance to Plavix, could consider Aggrenox in the future ( instead of Plavix and aspirin). If there is no critical stenosis on CTA, could discontinue aspirin and remain on Plavix monotherapy to decrease his bleeding risk. I have ordered pravastatin 10 mg daily for secondary stroke prevention. Patient reports intolerance to statin medication in the remote past (possibly simvastatin) with cramping of leg muscles. Pravastatin tends to have the least amount of risk for statin-induced intolerance side effects, and it is worth trying to reduce his stroke risk. If the patient again has statin intolerance, of course discontinue. Because of the patient's age, I have sent off for hypercoagulable workup to include homocystine, protein C&S, antithrombin III, anticardiolipin antibodies, beta 2 glycoprotein, and lupus anticoagulant. Agree with PT/OT and speech evaluations. Patient should at least have OT evaluation before leaving the hospital (I think at this time is unlikely the patient has any PT or speech needs) Stroke risk factor modifications and recommendations: Blood pressure recommendations for the first month post hospital discharge 150/ 90-130/80, and after that blood pressure recommendations 130/80-110/70 Total cholesterol goal 100- 200 and LDL goal less than 100 (currently at goal) Hemoglobin A1c goal less than 7 Encourage cardiovascular exercise at least 3 times a week for 30 minutes. No specific work recommendations at this time, although the patient may find it difficult to read with his current visual disturbances. Advised the patient no driving for at least the next month with his current visual disturbance. Patient will need ophthalmology examination with visual field testing as an outpatient, to determine the extent of his visual deficits and whether driving will be an option in the future. Follow-up in neurology clinic in 1 month for post stroke hospital follow-up. Thank you for allowing me to participate in this patient's care. If there is any questions or concerns, feel free to call/page me.
[2016-09-01] MEDS: CLOPIDOGREL BISULFATE 75 MG TAB PO SCH ×2 (10:23→16:56)
--- NOTE | 2016-09-01 11:05 | DIAGNOSTIC IMAGING REPORT ---
CT ANGIOGRAM OF THE BRAIN; CT ANGIOGRAM OF THE NECK CLINICAL HISTORY: Occipital stroke. Basilar artery stenosis. COMPARISON STUDY: MR angiogram of the brain dated 08/31/2016. CT and MRI of the brain dated 08/31/2016. Carotid artery ultrasound dated 08/31/2016. TECHNIQUE: Following the IV administration of 118 of Optiray 320, CT angiogram of the head and neck was performed from the aortic arch to the vertex. Images are reviewed in the axial, sagittal, and coronal planes. 3-D MIPS images are created and assessed. IV contrast was administered without complication. All measurements were calculated based on NASCET criteria. CT DOSE: 685.94 mGy.cm FINDINGS: Brain parenchyma: There is loss of [place]-white matter is average aeration the left occipital pole consistent with a small evolving infarct. There is no hemorrhage or mass effect. No additional foci of acute ischemia are suspected. There is no evidence of enhancing mass lesion on these angiogram phase images. The ventricles, sulci, and cisterns are normal in configuration. No extra-axial fluid collection is identified. Thoracic aorta: Visualized portions of the thoracic aorta are normal in caliber. The aortic arch demonstrates standard 3-vessel anatomy. Subclavian arteries: Widely patent bilaterally. Right carotid arterial system: The right common carotid artery is widely patent, as are the right internal and external carotid arteries. No dissection is seen. Left carotid arterial system: The left common carotid artery is widely patent, as are the left internal and external carotid arteries. No dissection is seen. Vertebral arteries: The vertebral arteries are patent bilaterally. The left vertebral artery is dominant and the right vertebral artery is diminutive. The right vertebral artery terminates at the skull base, likely as the PICA. Intracranial vasculature: The [place] is developmentally complete. The internal carotid arteries are widely patent at the skull base, as are the anterior and middle cerebral arteries. The left vertebral artery is dominant. The right vertebral artery is diminutive and terminates at the skull base, likely as the PICA. The basilar artery is patent. Focal basilar artery stenosis (approximately 50% luminal narrowing) is identified on image #67 and extends approximately 4 mm in length. The posterior cerebral arteries are patent. No aneurysm is seen. No additional focus of stenosis is identified. Jugular veins: Widely patent bilaterally. Dural sinuses: Clear. Lung apices: Partially visualized upper lobe lung parenchyma appears clear. Soft tissues: The visualized pharyngeal soft tissues are normal in appearance noting angiographic phase technique. The oropharyngeal airway appears widely patent. The salivary and thyroid glands are normal in appearance. No cervical lymphadenopathy is seen. Skeletal structures: The calvarium appears intact. The cervical spine is within normal limits. Sinuses and mastoids: Trace mucosal thickening is seen within the maxillary antra. The remaining paranasal sinuses are clear. The mastoid air cells are well pneumatized. IMPRESSION: 1. There is a small evolving left occipital lobe infarct. 2. No additional foci of ischemia are suspected. There is no hemorrhage or mass effect. 3. There is focal (approximately 50%) stenosis of the basilar artery. 4. The left vertebral artery is dominant. The right vertebral artery is diminutive and terminates at the skull base, likely as the PICA. 5. There is no aneurysm. 6. Unremarkable CT angiogram of the neck. Electronically signed by: Doug Limon M.D. 09/01/2016 11:04 AM Dictated Date/Time: 09/01/2016 10:52 AM
[2016-09-01] MEDS ORDERED: ASPI81TA28 PO (16:11)
[2016-09-01] MEDS ORDERED: PRVC10 PO (16:11)
[2016-09-01] MEDS ORDERED: PLV75 PO (16:11)
[2016-09-01] MEDS ORDERED: INSDGIPEN SC (16:11)
[2016-09-01] MEDS ORDERED: NVLGIPEN SC (16:11)
--- NOTE | 2016-09-01 16:23 | Discharge Instructions ---
Discharge Instructions Date of Service Sep 01, 2016. Admission Reason for Admission: Cva (Cerebral Vascular Accident) Visual Changes Discharge Discharge Diagnosis / Problem: CVA , Hyperglycemia Discharge Goals Goal(s): Decrease discomfort, Improve function, Increase independence, Improve disease control, Improve nutritional status, Learn about illness, Diagnostic testing, Therapeutic intervention, Screening, Prevent Disease Progression, Specific goals Activity Recommendations Activity Limitations: resume your previous activity . Instructions / Follow-Up Instructions / Follow-Up You came in with visual changes and Imaging confirmed Stroke in the Left Occipital area of the brain. Additional Imaging showed 50% stenosis of basilar artery. After consultation with Neurology, no surgical intervention is indicated-. -Please take Medication as prescribed. -You will be sent home on insulin therapy for the first time. It was be very important to check your blood glucose before meals and bedtime. Record these values and bring with you to appointment -Followup with Primary Care provider within 1-2 weeks of discharge. -Followup with Promotion Manager for Diabetes Management -Followup with Nephrology for Hypertension -Followup with Neurologist in 1 month Current Hospital Diet Patient's current hospital diet: AHA Diet (Heart Healthy), Diabetes Type 2 Diet Discharge Diet Recommended Diet: Diabetes Type 2 Diet Pending Studies Studies pending at discharge: no Laboratory Results Hemoglobin A1c Test 08/31/16 15:00 Range/Units Estimated Average Glucose 263 mg/dl Hemoglobin A1c 10.8 H 4.5-5.6 % Lipid Panel Test 09/01/16 05:25 Range/Units Triglycerides Level 396 H 0-150 mg/dl Cholesterol Level 172 0-200 mg/dl HDL Cholesterol 27 mg/dl Cholesterol/HDL Ratio 6.4 LDL Cholesterol, Calculated 66 mg/dl Medical Emergencies . Who to Call and When: Medical Emergencies: If at any time you feel your situation is an emergency, please call 911 immediately. . Non-Emergent Contact Non-Emergency issues call your: Primary Care Provider Call Non-Emergent contact if: you have a fever, your pain is not controlled, your pain is worsening, your pain is unusual for you, your pain is concerning you, you have any medication questions . . "Provider Documentation" section prepared by Jesus Velazquez. VTE Core Measure Inpt VTE Proph given/why not?: Enoxaparin (Lovenox)SQ
[2016-09-01] MEDS ORDERED: PRAVASTATIN SOD 10 MG TAB PO SCH (17:00)
[2016-09-01] MEDS ORDERED: INSU100I2 SC (18:07)
[2016-09-01] MEDS ORDERED: INSU3INJ3 SC (18:07)
--- NOTE | 2016-09-01 22:37 | Discharge Summary ---
Discharge Summary Date of Service Sep 01, 2016. Discharge Summary Admission Date: Aug 31, 2016 at 16:50 Discharge Date: Sep 01, 2016 Discharge Disposition: Home Principal Diagnosis: CVA Problems/Secondary Diagnoses: Hyperglycemia Immunizations: Have You Had Influenza Vaccine: No History of Tetanus Vaccine?: Yes History of Pneumococcal: No History of Hepatitis B Vaccine: No Procedures: CT ANGIOGRAM OF THE BRAIN; CT ANGIOGRAM OF THE NECK CLINICAL HISTORY: Occipital stroke. Basilar artery stenosis. COMPARISON STUDY: MR angiogram of the brain dated 08/31/2016. CT and MRI of the brain dated 08/31/2016. Carotid artery ultrasound dated 08/31/2016. TECHNIQUE: Following the IV administration of 118 of Optiray 320, CT angiogram of the head and neck was performed from the aortic arch to the vertex. Images are reviewed in the axial, sagittal, and coronal planes. 3-D MIPS images are created and assessed. IV contrast was administered without complication. All measurements were calculated based on NASCET criteria. CT DOSE: 685.94 mGy.cm FINDINGS: Brain parenchyma: There is loss of [place]-white matter is average aeration the left occipital pole consistent with a small evolving infarct. There is no hemorrhage or mass effect. No additional foci of acute ischemia are suspected. There is no evidence of enhancing mass lesion on these angiogram phase images. The ventricles, sulci, and cisterns are normal in configuration. No extra-axial fluid collection is identified. Thoracic aorta: Visualized portions of the thoracic aorta are normal in caliber. The aortic arch demonstrates standard 3-vessel anatomy. Subclavian arteries: Widely patent bilaterally. Right carotid arterial system: The right common carotid artery is widely patent, as are the right internal and external carotid arteries. No dissection is seen. Left carotid arterial system: The left common carotid artery is widely patent, as are the left internal and external carotid arteries. No dissection is seen. Vertebral arteries: The vertebral arteries are patent bilaterally. The left vertebral artery is dominant and the right vertebral artery is diminutive. The right vertebral artery terminates at the skull base, likely as the PICA. Intracranial vasculature: The [place] of [place] is developmentally complete. The internal carotid arteries are widely patent at the skull base, as are the anterior and middle cerebral arteries. The left vertebral artery is dominant. The right vertebral artery is diminutive and terminates at the skull base, likely as the PICA. The basilar artery is patent. Focal basilar artery stenosis (approximately 50% luminal narrowing) is identified on image #67 and extends approximately 4 mm in length. The posterior cerebral arteries are patent. No aneurysm is seen. No additional focus of stenosis is identified. Jugular veins: Widely patent bilaterally. Dural sinuses: Clear. Lung apices: Partially visualized upper lobe lung parenchyma appears clear. Soft tissues: The visualized pharyngeal soft tissues are normal in appearance noting angiographic phase technique. The oropharyngeal airway appears widely patent. The salivary and thyroid glands are normal in appearance. No cervical lymphadenopathy is seen. Skeletal structures: The calvarium appears intact. The cervical spine is within normal limits. Sinuses and mastoids: Trace mucosal thickening is seen within the maxillary antra. The remaining paranasal sinuses are clear. The mastoid air cells are well pneumatized. IMPRESSION: 1. There is a small evolving left occipital lobe infarct. 2. No additional foci of ischemia are suspected. There is no hemorrhage or mass effect. 3. There is focal (approximately 50%) stenosis of the basilar artery. 4. The left vertebral artery is dominant. The right vertebral artery is diminutive and terminates at the skull base, likely as the PICA. 5. There is no aneurysm. 6. Unremarkable CT angiogram of the neck. Consultations: Neurology Medication Reconciliation New Medications: Insulin Detemir (Levemir Flextouch) 100 Unit/Ml Inj 20 UNITS SC DAILY for 30 Days Insulin Lispro (Human) (Humalog Kwikpen) 100 Unit/Ml Inj 5 UNITS SC ACHS for 30 Days Clopidogrel Bisulfate (Clopidogrel) 75 Mg Tab 75 MG PO QAM for 30 Days, #30 TAB 1 Refill Pravastatin Sod (Pravastatin Sodium) 10 Mg Tab 10 MG PO DAILY@17 for 30 Days, #30 TAB 1 Refill Changed Medications: Aspirin (Aspirin Ec) 81 Mg Tab 81 MG PO DAILY for 7 Days, 0 Refills (Changed from: Refills: ) Take Asprin 7 days and then discontinue Continued Medications: Furosemide (Lasix) 20 Mg Tab 20 MG PO DAILY, TAB Labetalol (Normodyne) 200 Mg Tab 200 MG PO BID Lisinopril (Lisinopril) 40 Mg Tab 40 MG PO DAILY Spironolactone (Aldactone) 50 Mg Tab 50 MG PO DAILY Discontinued Medications: Metformin Hcl (Glucophage) 500 Mg Tab 500 MG PO QID Discharge Exam Review of Systems: Constitutional: No chills, No fever, No weakness Eyes: + problem reported (bright start pattern in peripheral vision reduced) , No diplopia, No eye pain Respiratory: No cough, No shortness of breath Cardiovascular: No chest pain, No edema, No palpitations Abdomen: No diarrhea, No nausea, No pain, No vomiting Genitourinary - Male: No dysuria, No urinary frequency, No urinary urgency Neurologic: No memory loss, No paralysis, No weakness Integumentary: No itch, No rash Physical Exam: General Appearance: no apparent distress Eyes: normal inspection, PERRL, EOMI Neck: supple, no carotid bruits, trachea midline Cardiovascular: regular rate, rhythm, no edema, no murmur, normal peripheral pulses Abdomen / GI: normal bowel sounds, non tender, soft Extremities: normal inspection, no calf tenderness, no pedal edema Neurologic/Psychiatric: brilliandeer lopper II-XII nml as tested, no motor/sensory deficits , alert, normal mood/affect, normal reflexes, oriented x 3 Skin: normal color, warm/dry, no rash Hospital Course 56 yo M With Hx of poorly controlled Diabetes II (last A1C 9.4), Essential HTN, Obstructive Sleep Apnea p/w acute visual changes including 3 day hx persistent bright flash of light in right lateral peripheral vision, [place], and progressive blurry vision that started morning of arrival in addition to Hyperglycemia on arrival above 400. CVA - bright area in Right lateral peripheral vision -CT showed small acute to subacute left occipital infarct. -MRI confirmed occipital infarct - MRA showed Basilar stenosis, CTA confirmed but showed stenosis to be 50% - Carotid Doppler unremarkable - Echo found no emboli - Lipid panel Chol 172 LDL 66, HDL 27 - A1C 10.8 - Neurology consulted - Started on Statin - Started on ASA and Plavix dual therapy for 7 days followed by Plavix monotherapy - Discharged with followup to PCP, Neurology HTN -Systolic in 150's -Chlorthalidone, Furosemide, Labetolol, Lisinopril, Spironolactone home dose continued Hyperglycemia on arrival BGL of 426, trended down given 10 u of Novolin in ED, IV fluids -secondary to medical non-compliance with metformin -started in 20 u lantus -Insulin SS Aspart Discharged with Levemir 20 U SC Daily, Humalog 5 u AC ACHS DVT Prophylaxis -lovenox given Sleep Apnea: - Patient reported he did not use CPAP at home -Previous Clinic note reported he preferred weight reduction as treatment Total Time Spent: Less than 30 minutes This includes examination of the patient, discharge planning, medication reconciliation, and communication with other providers. Discharge Instructions Please refer to the electronic Patient Visit Report (Discharge Instructions) for additional information. Follow-Up Neurology Primary Care Endocrinology Nephrology
[2016-09-02] MEDS ORDERED: INSULIN HUMAN LISPRO (humaLOG) 100 UNITS/ML VIAL SC SCH (07:30)
--- NOTE | 2016-09-02 08:40 | Pharmacy Progress Note ---
Pharmacist Stroke Counseling Date of Service Sep 01, 2016. Scope Pharmacy has been consulted to provide medication discharge counseling for this patient admitted with ischemic stroke/hemorrhagic stroke/ transient ischemic attack as per the Pharmacist Discharge Counseling for Stroke Patients Protocol. Medications on Discharge New Medications: Insulin Detemir (Levemir Flextouch) 100 Unit/Ml Inj 20 UNITS SC DAILY for 30 Days Insulin Lispro (Human) (Humalog Kwikpen) 100 Unit/Ml Inj 5 UNITS SC ACHS for 30 Days Clopidogrel Bisulfate (Clopidogrel) 75 Mg Tab 75 MG PO QAM for 30 Days, #30 TAB 1 Refill Pravastatin Sod (Pravastatin Sodium) 10 Mg Tab 10 MG PO DAILY@17 for 30 Days, #30 TAB 1 Refill Changed Medications: Aspirin (Aspirin Ec) 81 Mg Tab 81 MG PO DAILY for 7 Days, 0 Refills (Changed from: Refills: ) Take Asprin 7 days and then discontinue Continued Medications: Furosemide (Lasix) 20 Mg Tab 20 MG PO DAILY, TAB Labetalol (Normodyne) 200 Mg Tab 200 MG PO BID Lisinopril (Lisinopril) 40 Mg Tab 40 MG PO DAILY Spironolactone (Aldactone) 50 Mg Tab 50 MG PO DAILY Discontinued Medications: Metformin Hcl (Glucophage) 500 Mg Tab 500 MG PO QID Action The above medications, specifically ones for stroke treatment/prophylaxis, have been reviewed in detail with the patient and/or patient hostess party sales representative(s) prior to discharge. This includes indication, common adverse reactions, drug interactions, and medication administration. Medication counseling has been employed using the teach-back method to ensure understanding. Outcome The patient and/or patient hostess party sales representative(s) have demonstrated understanding of the medications. Please note, they are aware that the pharmacist will call them within 72 hours post-discharge to confirm that the appropriate medications are being taken and answer any further medication related questions the patient might have at that time. Contact information Individual to be contacted: Remberto Trejo (patient) Relationship to patient (if applicable): Self Phone number: [phone] Best time to call: 10:00 AM Additional comments: - Pharmacy notified of discharge late in the day (~1600); pharmacist spoke with resident, Dr. Velazquez to quickly obtain the major medication changes, but chart review could not be performed and finalized discharge orders not completed before patient counseling occurred. - Met with patient prior to discharge at bedside. Attempted to use open-ended questions to engage in conservation with the patient, but he was extremely resistant. He did not appreciate being asked about what information he already knew, what his providers told him about his Rx/medication changes, etc. Labor Conciliator tried to explain that these open-ended questions were meant to start a discussion with the patient so that missing information could be filled in, so he wouldn't get repetitive information, etc. He eventually obliged and gave elizabeth answers, but expressed dissatisfaction with the "different communication style". - Due to patient being unreceptive of counseling, could only briefly state the major adverse effects of new Rx's. He knew to watch for bleeding with Plavix. He reports a history of "bleeding from rectum" that he associates with metformin (due to severe diarrhea/GI sxs). Advised that dual anti-platelet therapy with ASA + Plavix will only be for 7 days, then he will just be on Plavix. He reports history of GI "intolerance" to many medications. Unclear what his adherence to anti-HTN medications are like as he was not willing to answer questions. - He has never been on insulin before. He states that nursing staff allowed him to self-inject. Again, due to resistance, was unable to check his injection technique and to provide a thorough review of appropriate insulin pen use. Advised on risk for hypoglycemia and how to correct. Recommended blood glucose checks before meals and bedtime. - Patient reports ? statin intolerance in the past. Unclear which statin... therefore, he is being trialed on a very low dose of Pravastatin (weak statin). - Of note, originally he was discharge with Lantus and Novolog. Scribner from his that his insurance prefers Levemir and Humalog. Alerted provider and nursing to make sure he obtained appropriate Rx's to prevent delay in care at his outpatient pharmacy. Got Rx's changed to Levemir and Humalog respectively. - Patient was agreeable to phone f/u. Will attempt to provide more education at that time, but patient was not receptive to education given prior to discharge. Thank you for allowing pharmacy to be involved in the care of this patient. Please call [phone] or [phone] with any additional questions
[2016-09-02] MEDS ORDERED: INSULIN DETEMIR FLEXPEN/FLEX TOUCH 100 UNITS/ML 3ML SC SCH (09:00)
[2016-09-04 05:28] LABS: ANTITHROMBINIII ACTIVITY** 103 % activity (80-120); B2 GLYCOPROTEIN IGA <9 SAU (<=20); B2 GLYCOPROTEIN IGG <9 SGU (<=20); B2 GLYCOPROTEIN IGM <9 SMU (<=20); LUPUS ANTICOAGULANT** TC36573X Negative (Negative); PROTEIN C ACTIVITY** TC 1777X 196 % (70-180); PROTEIN S ACT(FUNCT)**1779X 112 % (70-150)
== END 2016-09-01 18:26 | disposition home or self-care (01) | DRG 66 ==
LOC: ENRESERVDT → ENRESERVTM → C.EDB 14:24 → C.2T 16:50
PROVIDERS: ADMIT Family Medicine; ATTEND Family Medicine
DX: I63.9 Cerebral infarction, unspecified (principal); I10 Essential (primary) hypertension; Z82.49 Family history of ischemic heart disease and other diseases of the circulatory system; Z83.79 Family history of other diseases of the digestive system; Z83.3 Family history of diabetes mellitus; Z79.82 Long term (current) use of aspirin; Z79.4 Long term (current) use of insulin; Z79.899 Other long term (current) drug therapy; E11.65 Type 2 diabetes mellitus with hyperglycemia; G47.33 Obstructive sleep apnea (adult) (pediatric); Z91.14 Patient's other noncompliance with medication regimen

== ENCOUNTER → 2017-01-13 | Outpatient (CLI) | payer OTHER ==
[~2017-01-13] MED LIST changes: -GLC/500 PO; +INSU100I2 SC; +INSU3INJ3 SC; +PLV75 PO; +PRVC10 PO
[2017-01-13 14:08] LABS: BLOOD UREA NITROGEN 19 mg/dl (7-18); BUN/CREATININE RATIO 14.9 (10-20); CALCIUM 9.8 mg/dl (8.5-10.1); CARBON DIOXIDE 26 mmol/L (21-32); CHLORIDE 99 mmol/L (98-107); GLUCOSE 205 mg/dl (70-99); MAGNESIUM 1.8 mg/dl (1.8-2.4); POTASSIUM 4.2 mmol/L (3.5-5.1); SODIUM 134 mmol/L (136-145)
[2017-01-13 14:16] LABS: PHOSPHORUS 3.3 mg/dl (2.5-4.9); RHEUMATOID FACTOR < 10.0 U/mL (0-15)
[2017-01-14 07:36] LABS: ESTIMATED AVERAGE GLUCOSE 189 mg/dl; HA1C FLAG Normal (Normal)
== END | disposition home or self-care (01) ==
LOC: C.LABMFLN 11:14
PROVIDERS: ATTEND Physician Assistant
DX: I10 Essential (primary) hypertension (principal); M25.50 Pain in unspecified joint; E11.9 Type 2 diabetes mellitus without complications; I63.9 Cerebral infarction, unspecified

== ENCOUNTER → 2017-09-16 | Outpatient (CLI) | payer OTHER ==
[2017-09-16 12:39] LABS: BASO % 0.7 %; BASO ABS # 0.05 K/uL (0-0.2); EOS % 2.3 %; EOS ABS # 0.16 K/uL (0-0.5); HEMATOCRIT 41.1 % (42-52); HEMOGLOBIN 15.4 g/dL (14.0-18.0); IG# 0.03 K/uL (0.00-0.02); LYMPH % 35.7 %; LYMPH ABS # 2.46 K/uL (1.2-3.4); MEAN CELL VOLUME 85.8 fL (80-100); MEAN CORPUSCULAR HEMOGLOBIN 32.2 pg (25-34); MEAN CORPUSCULAR HGB CONC 37.5 g/dl (32-36); MEAN PLATELET VOLUME 9.6 fL (7.4-10.4); MONO % 7.8 %; MONO ABS # 0.54 K/uL (0.11-0.59); NEUT % 53.1 %; NEUT ABS # 3.66 K/uL (1.4-6.5); PLATELET COUNT 215 K/uL (130-400); RED CELL DISTRIBUTION WIDTH CV 12.3 % (11.5-14.5); RED CELL DISTRIBUTION WIDTH SD 38.7 fL (36.4-46.3)
[2017-09-16 13:05] LABS: ALBUMIN 3.8 gm/dl (3.4-5.0); ALT/SGPT 32 U/L (12-78); BLOOD UREA NITROGEN 19 mg/dl (7-18); CALCIUM 9.1 mg/dl (8.5-10.1); CARBON DIOXIDE 25 mmol/L (21-32); CHOLESTEROL 160 mg/dl (0-200); CREATININE 1.12 mg/dl (0.60-1.40); GLUCOSE 305 mg/dl (70-99); POTASSIUM 3.8 mmol/L (3.5-5.1); SODIUM 129 mmol/L (136-145)
[2017-09-16 13:08] LABS: ALKALINE PHOSPHATASE 58 U/L (45-117); AST/SGOT 16 U/L (15-37); TOTAL PROTEIN 7.3 gm/dl (6.4-8.2)
[2017-09-16 13:29] LABS: HEMOGLOBIN A1C 9.6 % (4.5-5.6)
[2017-09-16 15:35] LABS: LDL CHOLESTEROL CALCULATED 58 mg/dl
[2017-09-16 16:40] LABS: CREATININE RANDOM URINE 93.1 mg/dl
== END | disposition home or self-care (01) ==
LOC: C.LABMFLN 10:30
PROVIDERS: ATTEND Nurse Practitioner Family
DX: I10 Essential (primary) hypertension (principal); E88.81 Metabolic syndrome and other insulin resistance; Z12.5 Encounter for screening for malignant neoplasm of prostate; E78.5 Hyperlipidemia, unspecified; E11.21 Type 2 diabetes mellitus with diabetic nephropathy; Z11.59 Encounter for screening for other viral diseases